=== PATIENT | male | born 1990 | race Caucasian/White ===

== ENCOUNTER 2019-01-23 21:19 | Emergency (ER) | payer SELFPAY ==
[~2019-01-23] VITALS: Ht 165.1 cm; Wt 85.0 kg
[2019-01-23 21:22] VITALS: RESP 18; Ht 165.1 cm; Wt 85.0 kg
--- NOTE | 2019-01-24 02:10 | ERD ---
ER Documentation Chief Complaint Chief Complaint EPIGASTRIC PAIN, BURNING SENSATION IN THROAT X'S 5 DAYS HPI Patient is a 28 years old male with PMHx of Acid Reflux presenting to the clinic for persistent burning sensation on throat x 5 days. Patient reports of initial sore throat with throat swelling on Wednesday that has resolved. Patient states that he started experiencing pyrosis around the same time that did not resolve. Patient admits to using OTC Ibuprofen without resolution. Patient admits to associated LUQ abdominal pain that is mild in intensity. Patient denies fever, chills, night sweats, chest pain, cough, SOB, coryza, nausea, emesis, diarrhea, constipation, melena, hematochezia. ROS All systems reviewed and are negative except as per history of present illness. Medications Home Meds Active Scripts Omeprazole* (Omeprazole*) 20 Mg Capsule., 20 MG PO BID, #20 Prov:MICHAEL SNOWDEN PA-C 01/24/19 Allergies Allergies: Coded Allergies: No Known Allergy (Unverified , 01/23/19) PMhx/Soc Acid Reflux Medical and Surgical Hx: pt denies Surgical Hx History of Surgery: No Anesthesia Reaction: No Hx Neurological Disorder: No Hx Respiratory Disorders: No Hx Cardiac Disorders: No Hx Psychiatric Problems: No Hx Miscellaneous Medical Probl: No Hx Alcohol Use: Yes Hx Substance Use: No Hx Tobacco Use: No FmHx Family History: No diabetes, No coronary disease, No other Physical Exam Vitals Vital Signs Date Temp Pulse Resp B/P (MAP) Pulse Ox O2 O2 Flow FiO2 Time Delivery Rate 01/24/19 97.8 72 140/82 98 Room Air 04:56 (101) 01/23/19 98.2 71 18 144/84 100 21:22 (104) Physical Exam Const: No acute distress Head: Atraumatic Eyes: Normal Conjunctiva ENT: Normal External Ears, Nose and Mouth. Mild oropharyngeal erythema without edema, discharge or lesions. Neck: Full range of motion. No meningismus. Resp: Clear to auscultation bilaterally Cardio: Regular rate and rhythm, no murmurs Abd: Soft, non tender, non distended. Normal bowel sounds. Negative Craig sign, Rovsing sign, McBurney's point tenderness, guarding, rebound tenderness, C ullen sign, Ogden Redmond sign. Skin: No petechiae or rashes Back: No midline or flank tenderness. No CVAT. Ext: No cyanosis, or edema Neur: Awake and alert Psych: Normal Mood and Affect Result Diagram: 01/24/19 02101/24/19 0210 Results 24 hrs Laboratory Tests Test 01/24/19 02:10 White Blood Count 6.1 10^3/ul Red Blood Count 5.21 10^6/ul Hemoglobin 15.0 g/dl Hematocrit 45.6 % Mean Corpuscular Volume 87.5 fl Mean Corpuscular Hemoglobin 28.8 pg Mean Corpuscular Hemoglobin Concent 32.9 g/dl Red Cell Distribution Width 12.6 % Platelet Count 220 10^3/UL Mean Platelet Volume 9.7 fl Immature Granulocytes % 0.300 % Neutrophils % 44.9 % Lymphocytes % 42.7 % Monocytes % 8.8 % Eosinophils % 2.6 % Basophils % 0.7 % Nucleated Red Blood Cells % 0.0 /100WBC Immature Granulocytes # 0.020 10^3/ul Neutrophils # 2.7 10^3/ul Lymphocytes # 2.6 10^3/ul Monocytes # 0.5 10^3/ul Eosinophils # 0.2 10^3/ul Basophils # 0.0 10^3/ul Nucleated Red Blood Cells # 0.0 10^3/ul Urine Color YELLOW Urine Clarity CLEAR Urine pH 5.0 Urine Specific [place] 1.026 Urine Ketones NEGATIVE mg/dL Urine Nitrite NEGATIVE mg/dL Urine Bilirubin NEGATIVE mg/dL Urine Urobilinogen NEGATIVE mg/dL Urine Leukocyte Esterase NEGATIVE Michael/ul Urine Microscopic RBC 4 /HPF Urine Microscopic WBC 9 /HPF Urine Mucus FEW /HPF Urine Hemoglobin 2+ mg/dL Urine Glucose NEGATIVE mg/dL Urine Total Protein NEGATIVE mg/dl Sodium Level 142 mmol/L Potassium Level 4.2 mmol/L Chloride Level 101 mmol/L Carbon Dioxide Level 29 mmol/L Anion Gap 12 Blood Urea Nitrogen 17 mg/dl Creatinine 0.84 mg/dl Est Glomerular Filtrat Rate mL/min > 60 mL/min Glucose Level 92 mg/dl Calcium Level 9.4 mg/dl Total Bilirubin 0.4 mg/dl Direct Bilirubin 0.00 mg/dl Indirect Bilirubin 0.4 mg/dl Aspartate Amino Transf (AST/SGOT) 24 IU/L Alanine Aminotransferase (ALT/SGPT) 22 IU/L Alkaline Phosphatase 93 IU/L Total Protein 8.8 g/dl Albumin 4.7 g/dl Globulin 4.10 g/dl Albumin/Globulin Ratio 1.14 Lipase 121 U/L Current Medications Medications Dose Sig/Alli Start Time Status Last (Trade) Ordered Route PRN Stop Time Admin Dose Reason Admin Famotidine 40 mg ONCE ONCE 01/24/19 DC 01/24/19 (Pepcid) PO 02:30 02:12 01/24/19 02:31 Procedures/MDM Patient was seen and evaluated for pyrosis and LUQ pain. CBC, CMP, Lipase, Urinalysis revealed 9-WBC in urine and 2+Blood. Patient reports getting STI workup 1 week ago by PCP and is awaiting results (has a f/u in 1 week). Patient' s labs are otherwise unremarkable. Patient reports resolution of pyrosis with Pepcid PO. Abdominal ultrasound is unremarkable. Low suspicion for appendicitis, colitis, pancreatitis, cholecystitis, sepsis. Patient is stable and ready for discharge. F/U with PCP for GI referral. Patient will be given Omeprazole. Patient was advised to F/U with STI results. Departure Diagnosis: Primary Impression: Acid reflux Esophagitis presence: with esophagitis Qualified Codes: K21.0 - Gastro- esophageal reflux disease with esophagitis Condition: Stable Patient Instructions: What Is Acid Reflux? Referrals: [facility] Additional Instructions: Patient advised to return to the ED immediately for new or worsening symptoms. Patient advised to follow up with primary care provider in the next 24-48 hours. Patient verbalized understanding and agrees with treatment plan and course of action. If patient has no primary care they may follow up with [facility] + [address] [id number] or [facility] [address] [place] [address] or [facility] [address] [place] [address] MICHAEL SNOWDEN PA-C Jan 24, 2019 02:10
[2019-01-24] MEDS ORDERED: FAMOTIDINE 20 MG TAB PO ONE (02:30)
[2019-01-24] MEDS ORDERED: OMEP20CA16 PO (04:48)
[2019-01-24 04:56] VITALS: BP 140/82; PULSE 72
== END 2019-01-24 04:58 | disposition home or self-care (01) ==
LOC: FTE 21:19
DX: K21.0 Gastro-esophageal reflux disease with esophagitis (principal)
CPT/HCPCS: 36415; 76705; 80053; 81001; 83690; 85025